=== PATIENT | male | born 1960 | race Caucasian/White ===

== ENCOUNTER 2022-06-23 06:51 | Emergency (ER) | payer BC, SELFPAY ==
--- NOTE | ~2022-06-23 | CT_ITS ---
EXAMINATION: CT ABDOMEN AND PELVIS WITH CONTRAST CLINICAL INFORMATION: Right lower quadrant pain COMPARISON: None TECHNIQUE: Multidetector volumetric images were obtained from the superior aspect of the liver through the pubic symphysis following administration 85 mL of Omnipaque 350 intravenous contrast. Sagittal and coronal reformatted images were obtained on the technologist's workstation. Oral contrast: Yes This CT examination was performed using dose optimization techniques as appropriate, variously including the following: *Automated exposure control *Adjustment of mA and/or kV according to patient size (this includes techniques or standardized protocols for targeted exams where dose is matched to indication/reason for exam; i.e. extremities or head) *Use of iterative reconstruction technique DLP: 950 mGy-cm FINDINGS: LUNG BASES: The visualized lung bases are unremarkable. LIVER, GALLBLADDER, AND BILIARY TREE: The liver is normal in size, shape, and attenuation. No focal hepatic lesion or biliary ductal dilatation is present. The gallbladder is unremarkable with no evidence of radiopaque gallstones, gallbladder wall thickening, or obvious pericholecystic inflammatory changes. PANCREAS: Unremarkable. SPLEEN: Unremarkable. ADRENAL GLANDS: Unremarkable. KIDNEYS AND URETERS: There is moderate right hydronephrosis from a 7 mm right kidney stone. There is stranding of the right perinephric and periureteral fat area may represent backflow of urine secondary to obstruction. Differential would include infection. There is a 4 mm stone in the upper pole of the right kidney. There is a 1.5 cm right renal cyst. No imaging follow-up needed. BLADDER: Unremarkable. GASTROINTESTINAL TRACT: The small and large bowel are unremarkable. The appendix is unremarkable. ABDOMINAL WALL: No significant hernia is appreciated. LYMPH NODES: Normal. VASCULAR: Atherosclerotic disease. No aneurysm. PELVIC VISCERA: Unremarkable. OSSEOUS STRUCTURES: Degenerative changes of the spine. CT/CT abdomen pelvis w IV con IMPRESSION: Moderate right hydronephrosis from a 7 mm right UPJ stone. Small right upper pole renal stone. Small right renal cyst. Right perinephric and periureteral fat stranding. This may be due to obstruction/backflow of urine. Differential would include infection. Fleischner guidelines were followed.
[2022-06-23 07:31] VITALS: BP 162/65; PULSE 66; RESP 18; TEMP 36.4; O2SAT 97; BMI 40.6
--- NOTE | 2022-06-23 07:53 | ED.ABDPAIN ---
HPI - Abdominal Pain General Chief Complaint: Abdominal Pain Stated Complaint: abd pain Time Seen by Provider: 06/23/22 07:49 Source: patient Mode of arrival: ambulatory Limitations: no limitations History of Present Illness HPI narrative: This is 7 years old male presented to emergency department complaining of right lower quadrant abdominal pain he denies any fever vomiting diarrhea the pain is been ongoing for about 2 days. MD elicited complaint: abdominal pain Pertinent past history: other (DM) Onset (ago): day(s) (2) Pain Consistency: constant Location: RLQ Severity: moderate Quality: aching Radiation: RLQ Migration to: no migration Exacerbating factors: nothing Relieving factors: nothing Related Data Previous Rx's Medication Instructions Recorded oxycodone 5 mg capsule 5 mg PO Q8H PRN pain #12 caps 06/23/22 tamsulosin 0.4 mg capsule (Flomax) 0.8 mg PO BEDTIME #10 caps 06/23/22 Allergies Allergy/AdvReac Type Severity Reaction Status Date / Time No Known Allergies Allergy Verified 06/23/22 07:33 Review of Systems Constitutional: Reports no additional constitutional complaints Cardiovascular: Reports no additional cardiovascular complaints Musculoskeletal: Reports no additional musculoskeletal complaints [facility] Past Medical History [facility] Narrative: History of diabetes, history of DJD history knee replacement Social History Social History Alcohol intake: unknown Physical Exam ED Vital Signs: Vital Signs - 24 hr 06/23/22 07:31 06/23/22 11:07 Temperature 97.6 F 98.6 F Pulse Rate 66 67 Respiratory Rate 18 18 Blood Pressure 162/65 H 161/65 H Pulse Oximetry 97 96 Oxygen Delivery Method Room Air Room Air BMI result Body Mass Index 40.6 Const General: cooperative and healthy appearing Nutritional Appearance: average body habitus Orientation/consciousness: patient oriented x3 Limitations: no limitations HENMT Head: Yes normal to inspection General nose exam: Normal external nose present Face and sinus: Yes normal facial exam Mouth: Normal oral and palatal mucosa present Throat: Yes posterior oropharynx normal Neck Neck: Yes normal visual inspection, Yes full ROM and Yes no lymphadenopathy Chest Chest palpation & inspection: normal inspection of the chest Resp Effort & Inspection: normal respiratory effort Auscultation: clear to auscultation bilaterally Cardio Jugular venous distension: no JVD Rate: regular rate Rhythm: regular rhythm GI Other: Examination of the abdomen, the abdomen is soft there is no tenderness no guarding no rebound Skin General skin exam: no rashes or lesions noted and elasticity normal Lesions: no lesions Rashes: no rashes Neuro General: patient oriented x3 Cranial nerves: Yes CN's II-XII intact bilaterally Course Reevaluation(s) Reevaluation #1: Feels better, CT scan showed the right ureter a stone 7 mm, I discussed the case with the urologist compo conveyor operator Dr Javier Alan, we discussed the option per urology he can be discharged home if pain under control she will follow up as outpatient Time: 12:15 Medical Decision Making Medical Decision Making [facility] Narrative: Patient presented with right lower quadrant abdominal pain abdomen exam is very benign, however will go ahead and do CT scan of the abdomen and pelvis to rule out acute appendicitis Differential Diagnosis Differential Diagnoses: The differential diagnosis associated with the presentation includes Differential diagnosis acute appendicitis/diverticulitis /colitis Admission/Observation Consideration of admission/observation: Escalation of care including admission/observation considered Lab Data [facility] Lab Attestation statement: I reviewed the patient's lab results. 06/23/22 08:03 06/23/22 08:41 Labs: Lab Results 06/23/22 06/23/22 06/23/22 Range/Units 08:03 08:41 11:35 WBC 9.7 (4.8-10.8) X10*3/uL RBC 4.72 (4.60-5.80) X10*6/uL Hgb 13.1 L (14.0-18.0) g/dl Hct 39.5 L (42.0-52.0) % MCV 83.7 (80.0-98.0) fL MCH 27.8 (27.0-33.0) pg MCHC 33.2 (31.0-36.0) g/dl RDW 14.6 (11.0-16.0) % Plt Count 276 (160-400) X10*3/uL MPV 9.6 (9.4-12.4) fL Immature Gran % (Auto) 0.4 (0.0-0.4) % Neut % (Auto) 78.1 H (45-73) % Lymph % (Auto) 13.7 L (20-40) % [place] % (Auto) 6.6 (2-11) % Eos % (Auto) 0.8 (0-4) % Baso % (Auto) 0.4 (0-2) % Lymph # (Auto) 1.3 (1.2-4.9) X10*3/uL [place] # (Auto) 0.6 (0.1-1.2) X10*3/uL Eos # (Auto) 0.1 (0.0-0.4) X10*3/uL Baso # (Auto) 0.0 (0.0-0.2) X10*3/uL Abs Immat Gran (auto) 0.04 H (0.00-0.03) X10*3/uL Absolute Neuts (auto) 7.6 (2.0-8.3) x10*3/uL Absolute Nucleated RBC 0.000 (0.0-0.012) X10*3/uL Nucleated RBC % (auto) 0.0 (0.0-0.2) /100WBC Sodium 138 (135-145) mmol/L Potassium 3.6 (3.3-5.1) mmol/L Chloride 113 H (96-108) mmol/L Carbon Dioxide 15 L (22-29) mmol/L Anion Gap 14 (12-20) BUN 23 H (9-16) mg/dL Creatinine 1.01 (0.5-1.4) mg/dL Estim Creat Clear Calc 111.1 Estimated GFR > 60 Random Glucose 141 H (60-115) mg/dL Calcium 7.7 L (8.4-10.2) mg/dL Total Bilirubin 0.4 (0.0-1.0) mg/dL AST 16 (5-37) U/L ALT 15 (0-40) U/L Alkaline Phosphatase 38 L (39-117) U/L Total Protein 5.3 L (6.5-8.0) g/dL Albumin 3.4 L (3.5-5.0) g/dL Urine Color Yellow Urine Appearance Clear Urine pH 5.5 (5.0-9.0) Ur Specific [place] >= 1.030 H (1.005-1.025) Urine Protein Negative (Neg-Trace) mg/dL Urine Glucose (UA) Negative (Negative) mg/dL Urine Ketones Negative (Negative) mg/dL Urine Blood Small (1+) H (Negative) Urine Nitrite Negative (Negative) Ur Leukocyte Esterase Negative (Negative) Urine RBC 0-2 (0-2) /HPF Urine WBC 0-5 (0-5) /HPF Ur Squamous Epith Cells 0-2 (0-2) /HPF Urine Bacteria None Seen (None Seen) Hyaline Casts 0-2 (0-2) /LPF Independent Interpretation I performed an independent interpretation of an: CT Scan Interpretation: ?secondary to obstruction. Differential would include infection. There is a 4 mm stone in the upper pole of the right kidney. There is a 1.5 cm right renal cyst. No imaging follow-up needed. BLADDER: Unremarkable.? GASTROINTESTINAL TRACT: The small and large bowel are unremarkable. The appendix is unremarkable.? ABDOMINAL WALL: No significant hernia is appreciated.? LYMPH NODES: Normal. VASCULAR: Atherosclerotic disease. No aneurysm. PELVIC VISCERA: Unremarkable.? OSSEOUS STRUCTURES: Degenerative changes of the spine. CT/CT abdomen pelvis w IV con IMPRESSION: Moderate right hydronephrosis from a 7 mm right UPJ stone. Small right upper pole renal stone. Small right renal cyst. Right perinephric and periureteral fat stranding. This may be due to obstruction/backflow of urine. Differential would include infection. ? Fleischner guidelines were followed. Dictated By: Jacquelin Mahmood MD Signed By: <Electronically signed by? Medications Administered Discontinued Medications Generic Name Dose Route Start Last Admin Trade Name Freq PRN Reason Stop Dose Admin Hydromorphone HCl 0.5 mg 06/23/22 10:07 06/23/22 10:22 Hydromorphone Hcl 0.5 Mg/0.5 Ml Syringe IVPUSH 06/23/22 10:08 0.5 mg ONCE ONE Administration Protocol Sodium Chloride 1,000 mls @ 999 mls/hr 06/23/22 09:30 06/23/22 10:45 Ns IVCONT 06/23/22 10:30 Infused .Q1H1M SAMSON Infusion Sodium Chloride 1,000 mls @ 999 mls/hr 06/23/22 11:45 06/23/22 11:45 Ns IV 06/23/22 12:45 999 mls/hr .Q1H1M SAMSON Administration Ketorolac Tromethamine 30 mg 06/23/22 11:23 06/23/22 11:33 Ketorolac Tromethamine 30 Mg/Ml Vial IVPUSH 06/23/22 11:24 30 mg ONCE ONE Administration Discharge Plan Discharge Clinical Impression: Renal colic Patient Disposition: Home, Self-Care Instructions: Renal Colic (ED) Additional Instructions: Follow-up with the urologist return to emergency room if you have a fever/if you vomiting/if the pain is intractable Prescriptions: New tamsulosin [Flomax] 0.4 mg capsule 0.8 mg PO BEDTIME Qty: 10 0RF oxycodone 5 mg capsule 5 mg PO Q8H PRN (Reason: pain) Qty: 12 0RF Rx Instructions: Partial Fill upon patient request. Referrals: Michelle Alicea MD [Physician] - 3 days Stand Alone Forms: Work/School Release Interventions: ED Discharge Assessment Last Done: 06/23/22 12:29 Discharge Date/Time: 06/23/22 12:29
--- NOTE | 2022-06-23 08:05 | PC.NURSE ---
Patient complaint of RLQ ABD pain no tenderness or guarding with auscultation/light palpation. BS hypoactive patient denies blood in stool no recent sick contacts or travel. No respiratory distress noted denies chest pain. AOx 4 neuros intact IV access obtained labs collected and sent will CTM
[2022-06-23 08:07] LABS: MANUAL DIFF FLAG NO
[2022-06-23 08:11] LABS: Basophils Percent Auto 0.4 % (0-2); Eosinophils Absolute Auto 0.1 X10*3/uL (0.0-0.4); Eosinophils Percent Auto 0.8 % (0-4); Hematocrit 39.5 % (42.0-52.0); Hemoglobin 13.1 g/dl (14.0-18.0); Imm Gran Abs Auto 0.04 X10*3/uL (0.00-0.03); Imm Gran Pct Auto 0.4 % (0.0-0.4); Lymphocytes Absolute Auto 1.3 X10*3/uL (1.2-4.9); Lymphocytes Percent Auto 13.7 % (20-40); Mean Corpuscular HGB Conc 33.2 g/dl (31.0-36.0); Mean Corpuscular Hemoglobin 27.8 pg (27.0-33.0); Mean Corpuscular Volume 83.7 fL (80.0-98.0); Mean Platelet Volume 9.6 fL (9.4-12.4); Monocytes Absolute Auto 0.6 X10*3/uL (0.1-1.2); Monocytes Percent Auto 6.6 % (2-11); Neutrophils Absolute Auto 7.6 x10*3/uL (2.0-8.3); Neutrophils Percent Auto 78.1 % (45-73); Platelet Count 276 X10*3/uL (160-400); Red Blood Count 4.72 X10*6/uL (4.60-5.80); Red Cell Distribution Width 14.6 % (11.0-16.0); White Blood Count 9.7 X10*3/uL (4.8-10.8)
[2022-06-23 08:58] LABS: Alanine Aminotransferase 15 U/L (0-40); Albumin Level 3.4 g/dL (3.5-5.0); Alkaline Phosphatase 38 U/L (39-117); Anion Gap 14 (12-20); Aspartate Amino Transferase 16 U/L (5-37); Bilirubin Total 0.4 mg/dL (0.0-1.0); Blood Urea Nitrogen 23 mg/dL (9-16); Calcium 7.7 mg/dL (8.4-10.2); Carbon Dioxide 15 mmol/L (22-29); Chloride 113 mmol/L (96-108); Creatinine Clr Calc Pharmacy 111.1; Estimated Glomerular Filt Rate > 60; Glucose Random 141 mg/dL (60-115); Potassium 3.6 mmol/L (3.3-5.1); Sodium 138 mmol/L (135-145); Total Protein 5.3 g/dL (6.5-8.0)
--- NOTE | 2022-06-23 09:18 | PC.NURSE ---
Patient at CT
[2022-06-23] MEDS: 0.9 % Sodium Chloride 1,000 ML 999 ML IVCONT (09:27)
--- NOTE | 2022-06-23 10:05 | PC.NURSE ---
Notified MD increased level of pain awaiting orders will CTM
[2022-06-23] MEDS: HYDROmorphone HCl 0.5 MG/0.5 ML SYRINGE IVPUSH (10:22)
[2022-06-23 11:07] VITALS: BP 161/65; PULSE 67; RESP 18; TEMP 37; O2SAT 96
[2022-06-23] MEDS: Ketorolac Tromethamine 30 MG/ML VIAL IVPUSH (11:33)
[2022-06-23] MEDS: 0.9 % Sodium Chloride 1,000 ML 999 ML IV (11:45)
[2022-06-23 11:47] LABS: Appearance Urine Clear; Color Urine Yellow; Glucose Urine UA Negative (Negative); Leukocyte Esterase Urine Negative (Negative); Nitrite Urine Negative (Negative); PH 5.5 (5.0-9.0); Specific Gravity - Urine >= 1.030 (1.005-1.025); UMIC TRIGGER UACC YES; Urine Blood Small (1+) (Negative); Urine Ketones Negative (Negative); Urine Protein Negative (Neg-Trace)
[2022-06-23 12:00] LABS: Bacteria Urine None Seen (None Seen); Hyaline Casts Urine 0-2 /LPF (0-2); RBC Urine 0-2 /HPF (0-2); Squamous Epithelial Cell Urine 0-2 /HPF (0-2); WBC Urine 0-5 /HPF (0-5)
== END 2022-06-23 12:29 | disposition home or self-care (01) ==
PROVIDERS: Emergency Provider Emergency Medicine; PCP Family Medicine
DX: N13.2 Hydronephrosis with renal and ureteral calculous obstruction (principal); E11.9 Type 2 diabetes mellitus without complications
CPT/HCPCS: 36415; 74177; 80053; 81001; 85025; 96361; 96374; 96375; 99284; J1170; J1885

== ENCOUNTER 2022-06-28 10:47 | Outpatient (REF) | payer BC, SELFPAY ==
--- NOTE | ~2022-06-28 | XR_ITS ---
EXAMINATION: XR ABDOMEN KUB CLINICAL INDICATION: Renal colic COMPARISON: CT scan of June 23, 2022 TECHNIQUE: AP view of the abdomen. FINDINGS: No dilated loops of large or small bowel are evident. Psoas margins are intact. Multilevel degenerative disc disease is present with prominent spurring. There appears be a bone island overlying the right iliac crest. There is a 1 cm faintly seen density lying between the the L3 and L4 right transverse processes. There is also a faintly seen 12 mm density overlying the region of the upper pole of the right kidney. XR/XR KUB IMPRESSION: Right Ureteral calculus seen at the level between the third and fourth transverse processes. Probable upper pole right renal calculus identified.
== END 2022-06-28 10:48 | disposition home or self-care (01) ==
LOC: HO.XRAY 10:47
PROVIDERS: PCP Family Medicine; Visit Provider Urology
DX: N20.0 Calculus of kidney (principal); N23 Unspecified renal colic; N13.30 Unspecified hydronephrosis; N13.1 Hydronephrosis with ureteral stricture, not elsewhere classified
CPT/HCPCS: 74018

== ENCOUNTER → 2022-06-30 11:50 | Outpatient (BNVA) | payer BC, SELFPAY | PROVIDERS: PCP Family Medicine; Visit Provider Urology | DX: Z13.89 Encounter for screening for other disorder (principal) ==

== ENCOUNTER 2022-07-05 09:32 | Day surgery (SDC) | payer BC, SELFPAY ==
--- NOTE | ~2022-07-05 | XR_ITS ---
EXAMINATION: XR ABDOMEN KUB CLINICAL INDICATION: Pre-ESWL. COMPARISON: KUB dated 06/28/2022; CTA abdomen and pelvis dated 06/23/2022. TECHNIQUE: 4 AP views of the abdomen and pelvis are submitted. FINDINGS: The bowel gas pattern is normal, with no evidence of ileus or obstruction. A 1.0 cm right ureteric calculus is redemonstrated at the level of the L4 right transverse process. This is faintly visualized. No further urinary calculus is appreciated. There are multi-level degenerative changes of the thoracolumbar spine. XR/XR KUB IMPRESSION: A 1.0 cm right ureteric calculus is faintly redemonstrated, situated adjacent to the right L4 transverse process.
[2022-07-05 10:46] VITALS: BMI 40.6
[2022-07-05 11:00] VITALS: BP 158/69; PULSE 79; RESP 16; TEMP 35.9; O2SAT 95
[2022-07-05 11:11] LABS: Glucose, Whole Blood 108 mg/dL (60-115)
[2022-07-05] MEDS: Lactated Ringers 1,000 ML 999 ML IV (11:13)
--- NOTE | 2022-07-05 12:45 | HO.ANESPROP2 ---
[facility] Active Problems Active Problems: All Active Problems (Updated 07/05/22 @ 10:44 by Wilma Hart RN) Kidney stone (Acute) Hydronephrosis (Acute) Hydronephrosis due to obstruction of ureter (Acute) Past Medical History Medical History (Updated 07/05/22 @ 10:44 by Wilma Hart RN) Diabetes Left testicular cancer Sleep apnea Family History Family history of problems with anesthesia: No Surgical History Surgical History (Updated 07/05/22 @ 10:43 by Wilma Hart RN) History of back surgery History of bilateral knee replacement History of Problems with Anesthesia: No Social History Social History Alcohol intake: unknown Patient Tobacco Use Status: Never used Tobacco Use of substances other than those prescribed or required for medical reasons: Yes Are you DNR?: No Advance Directives: No Advance Directives Information Provided: Yes Recently lost weight without trying: No Nutrition Risks: No Nutritional Risk Meds Allergies Allergy/AdvReac Type Severity Reaction Status Date / Time No Known Allergies Allergy Verified 06/30/22 11:51 Active Medications: Current Medications Lactated Ringer's (Lr) 1,000 mls @ 999 mls/hr IV .Q1H1M SAMSON Stop: 07/05/22 13:00 Last Admin: 07/05/22 11:13 Dose: 999 mls/hr Home Medications Medication Instructions Recorded Confirmed Last Taken Type exenatide microspheres 2 mg/0.85 mg subcut 06/28/22 Unknown History mL subcutaneous auto-injector (Bynandiniresagar Alcazar) fenofibrate 160 mg tablet 160 mg PO DAILY 06/28/22 Unknown History fluticasone propionate 50 1 spray intranasal DAILY 06/28/22 Unknown History mcg/actuation nasal spray,suspension insulin degludec 200 unit/mL (3 unit subcut 06/28/22 Unknown History mL) subcutaneous pen (Tresiba FlexTouch U-200 insulin) insulin syringe-needle U-100 1 mL #10 ea 06/28/22 Unknown History 31 gauge x 5/16 (BD Insulin Syringe Ultra-Fine) metformin 1,000 mg tablet 1,000 mg PO BID 06/28/22 Unknown History olmesartan 20 mg tablet 20 mg PO DAILY 06/28/22 Unknown History pen needle, diabetic 31 gauge x #50 ea 06/28/22 Unknown History 07/20 (BD Ultra-Fine Mini Pen Needle) pioglitazone 30 mg tablet 30 mg PO DAILY 06/28/22 Unknown History pravastatin 40 mg tablet mg PO 06/28/22 Unknown History Exam Exam Date and Time: July 05, 2022 1245 Height,Weight and Vital Signs: Height 6 ft Weight 136.078 kg Last Vital Signs Temp 96.7 F L 07/05/22 11:00 Pulse 79 07/05/22 11:00 Resp 16 07/05/22 11:00 BP 158/69 H 07/05/22 11:00 Pulse Ox 95 07/05/22 11:00 O2 Del Method 07/05/22 11:00 Pertinent Lab Results Pertinent Lab Results: Laboratory Tests 07/05/22 11:06 POC Glucose 108 Airway Mallampati Class: II TM Dist: >3cm Neck ROM: Full Loose/Missing/Broken Teeth: No Heart: ok Lungs: ok Assessment and Plan Assessment Anesthesia Assessment: Anesthesia Plan Discussed and Chart Reviewed Final Anesthetic Review Family History of Problems with Anesthesia: No History of Problems with Anesthesia: No NPO: Yes ASA Class: III Final Preanesthetic Review: No Changes in Pt Med Stat, Meds/Allgs Chart Reviewed, Consent Obtained/Reviewed and Anes Risks/Benef Reviewed Patient Risk: High Procedure Risk: Low Anesthetic Plan Anesthetic Plan: GA and Agree w/ Assess. and Plan Disposition: Standard PACU
[2022-07-05 13:46] VITALS: BP 107/52; PULSE 71; RESP 15; TEMP 36.3; O2SAT 96
--- NOTE | 2022-07-05 13:47 | P.OP_ITS ---
Operative Note Operative Note Date of Service: 07/05/22 Narrative: PreOperative Diagnosis:? ? right Renal stone Post Operative Diagnosis:?right? Renal stone Procedure:?right? ESWL Surgeon:?Dr Michelle Alicea Anesthesia:? general Indications for procedure: The patient understands ESWL may be a staged procedure and subsequent intervention may be required based on imaging after ESWL.? They also understand? there is a risk of bleeding to the kidney, infection, damage to adjacent organs, and stone migration following the procedure. - Imaging 9 mm stone Right kidney lower pole Procedure: After informed consent was verified the patient was brought to the operating room and placed in a supine position.? Anesthesia was performed per protocol. Safety pause time-out was performed. Imaging was displayed in the room and laterality confirmed. ESWL was performed.?The stone was visualized on both fluoroscopy and ultra sound.? Shockwave lithotripsy was performed, the first 300 shocks at 60 hertz.? A pause for 3 minutes.? A total of 2500 shocks to a maximum of power of 20 with a maximum rate of 120 hertz.? Good fragmentation of the stone was appreciated. The patient tolerated the procedure well and was transferred to the recovery area upon completion. Complications: None
[2022-07-05 13:51] VITALS: BP 109/57; PULSE 69; RESP 16; O2SAT 97
[2022-07-05 13:56] VITALS: BP 124/58; PULSE 66; RESP 14; O2SAT 99
[2022-07-05] MEDS: Acetaminophen 1,000 MG/100 ML PIGGYBACK 400 MG IV (14:00)
[2022-07-05 14:01] VITALS: BP 128/63; PULSE 68; RESP 16; O2SAT 99
[2022-07-05 14:16] VITALS: BP 125/61; PULSE 69; RESP 18; TEMP 36.6; O2SAT 98
== END 2022-07-05 15:54 | disposition home or self-care (01) ==
PROVIDERS: PCP Family Medicine; Visit Provider Urology
PROC: (CPT 50590; principal; 2022-07-05 12:00)
DX: N20.0 Calculus of kidney (principal); Z85.47 Personal history of malignant neoplasm of testis; E11.9 Type 2 diabetes mellitus without complications; Z79.4 Long term (current) use of insulin; G47.30 Sleep apnea, unspecified; Z99.89 Dependence on other enabling machines and devices
CPT/HCPCS: 50590; 74018; 82947; J0131; J0690; J1940; J2370; J2405; J3010

== ENCOUNTER 2022-07-21 11:05 | Outpatient (REF) | payer BC, SELFPAY ==
--- NOTE | ~2022-07-21 | XR_ITS ---
EXAMINATION: XR ABDOMEN KUB CLINICAL INDICATION: Renal calculus COMPARISON: None available. TECHNIQUE: AP view of the abdomen. FINDINGS: The bowel gas pattern is normal with no evidence of ileus or obstruction. No unusual soft tissue calcifications are noted. The bones are unremarkable. XR/XR KUB IMPRESSION: Unremarkable examination.
== END 2022-07-21 11:06 | disposition home or self-care (01) ==
LOC: HO.XRAY 11:05
PROVIDERS: PCP Family Medicine; Visit Provider Urology
DX: N20.0 Calculus of kidney (principal)
CPT/HCPCS: 74018

== ENCOUNTER → 2022-07-24 11:15 | Outpatient (BNVA) | payer BC, SELFPAY | PROVIDERS: PCP Family Medicine; Visit Provider Urology | DX: N20.0 Calculus of kidney (principal); N13.30 Unspecified hydronephrosis; N13.1 Hydronephrosis with ureteral stricture, not elsewhere classified; R11.0 Nausea | CPT/HCPCS: 51798 ==

== ENCOUNTER 2022-09-11 07:39 | Outpatient (REF) | payer BC, SELFPAY ==
--- NOTE | ~2022-09-11 | CT_ITS ---
EXAMINATION: CT abdomen pelvis wo IV con CLINICAL INFORMATION: Kidney stone COMPARISON: June 2022 TECHNIQUE: Multidetector volumetric imaging was performed from the superior aspect of the liver through the pubic symphysis , noncontrasted study. Sagittal and coronal reformatted images were obtained on the technologist's workstation. This CT examination was performed using dose optimization techniques as appropriate, variously including the following: *Automated exposure control *Adjustment of mA and/or kV according to patient size (this includes techniques or standardized protocols for targeted exams where dose is matched to indication/reason for exam; i.e. extremities or head) *Use of iterative reconstruction technique DLP: 837 mGy-cm FINDINGS: LOWER THORAX: Included lung bases are clear. HEPATOBILIARY: No focal hepatic lesions. No biliary ductal dilatation. GALLBLADDER: Gallbladder unremarkable. SPLEEN: Spleen is normal in size. PANCREAS: No focal mass or ductal dilatation. STOMACH AND GASTROINTESTINAL TRACT: Stomach is grossly unremarkable. There is no bowel distention or thickening. No CT evidence of appendicitis. There are few sigmoid diverticula. ADRENALS: No adrenal nodules. KIDNEYS/URETERS: Redemonstration of severe right renal hydronephrosis and hydroureter due to 1 cm stone lodged in the distal right ureter. There is perinephric and periureteric fat stranding which could be sequela of high degree obstruction, cannot rule out superimposed infection. There are additional nonobstructing stones in the right kidney lower calyx 7 mm. There are no stones on the left side. URINARY BLADDER: Partially decompressed. PELVIC VISCERA: Unremarkable PERITONEUM: No free air or fluid. LYMPH NODES: No lymphadenopathy. VASCULAR:There are aortic vascular calcifications. No aneurysm. BONES, ABDOMINAL WALL AND SOFT TISSUES: Spondylosis of the lumbar spine. Age-appropriate changes of the spine and skeletal system, no destructive osteolytic or osteosclerotic bone lesion found CT/CT abdomen pelvis wo IV con IMPRESSION: * Redemonstration of severe right renal hydronephrosis and hydroureter due to a 1 cm stone lodged in the distal right ureter. There is perinephric and periureteric fat stranding which could be sequela of high degree obstruction, urine backflow, cannot rule out superimposed infection. * Additional nonobstructing stones in the right kidney lower calyx. * Other noncritical findings as above..
== END 2022-09-11 07:40 | disposition home or self-care (01) ==
LOC: HO.CT 07:39
PROVIDERS: PCP Family Medicine; Visit Provider Urology
DX: N20.0 Calculus of kidney (principal); N13.30 Unspecified hydronephrosis; N13.1 Hydronephrosis with ureteral stricture, not elsewhere classified
CPT/HCPCS: 74176

== ENCOUNTER → 2022-09-18 10:48 | Outpatient (BNVA) | payer BC, SELFPAY | PROVIDERS: PCP Family Medicine; Visit Provider Urology ==

== ENCOUNTER 2022-09-19 08:34 | Day surgery (SDC) | payer BC, SELFPAY ==
--- NOTE | 2022-09-18 10:15 | HO.ANESPROP2 ---
Documented by User: Paty Rice NP 09/18/22 10:19 HPI - Anesthesia Eval Consult details Narrative: 61yo M for Cystoscopy, Ureteroroscopy, Retro, Laser,with poss stent, s/p ESWL 07/2022 with GA-LMA 5 PMFSH Active Problems Active Problems: All Active Problems (Updated 07/24/22 @ 13:03 by Michelle Alicea MD) Nausea (Acute) Encounter for screening (Acute) Kidney stone (Acute) Hydronephrosis (Acute) Hydronephrosis due to obstruction of ureter (Acute) Past Medical History Medical History Arthritis of left knee BPH (benign prostatic hyperplasia) Carcinoma of descended right testis Diabetes Ganglion cyst of dorsum of left wrist Hemorrhoids, external HTN (hypertension) Hyperchloremia Insomnia Insulin long-term use Left testicular cancer Malignant melanoma Morbid obesity Neuropathy, diabetic GEORGES (obstructive sleep apnea) Seborrheic keratoses Sleep apnea Family History Family history of problems with anesthesia: No Surgical History Surgical History History of back surgery History of bilateral knee replacement History of Problems with Anesthesia: No Social History Social History Alcohol intake: unknown Patient Tobacco Use Status: Never used Tobacco Use of substances other than those prescribed or required for medical reasons: Yes Are you DNR?: No Advance Directives: No Advance Directives Information Provided: Yes Recently lost weight without trying: Yes How much weight loss: 2-13 pounds Nutrition Risks: No Nutritional Risk Meds Allergies Allergy/AdvReac Type Severity Reaction Status Date / Time No Known Allergies Allergy Verified 09/18/22 10:49 Home Medications Medication Instructions Recorded Confirmed Last Taken Type fenofibrate 160 mg tablet 160 mg PO DAILY 06/28/22 09/19/22 Unknown History fluticasone propionate 50 1 spray intranasal DAILY 06/28/22 09/19/22 Unknown History mcg/actuation nasal spray,suspension insulin syringe-needle U-100 1 mL #10 ea 06/28/22 Unknown History 31 gauge x 5/16 (BD Insulin Syringe Ultra-Fine) metformin 1,000 mg tablet 1,000 mg PO BID 06/28/22 09/19/22 Unknown History pioglitazone 30 mg tablet 30 mg PO DAILY 06/28/22 09/19/22 Unknown History aspirin 81 mg tablet,delayed 81 mg PO DAILY 09/18/22 09/19/22 Unknown History release (Adult Aspirin Regimen) insulin degludec 200 unit/mL (3 100 unit subcut BEDTIME 09/18/22 09/19/22 Unknown History mL) subcutaneous pen (Tresiba FlexTouch U-200 insulin) pen needle, diabetic 31 gauge x #50 ea 09/18/22 Unknown History 07/20 (BD Ultra-Fine Mini Pen Needle) pravastatin 40 mg tablet 40 mg PO DAILY 09/18/22 09/19/22 Unknown History Exam Exam Date and Time: September 18, 2022 1015 Pertinent Lab Results Pertinent Lab Results: Laboratory Tests 06/23/22 06/23/22 08:03 08:41 WBC 9.7 Hgb 13.1 L Hct 39.5 L Plt Count 276 Sodium 138 Potassium 3.6 Chloride 113 H Carbon Dioxide 15 L BUN 23 H Creatinine 1.01 Assessment and Plan Assessment Anesthesia Assessment: Chart Reviewed Final Anesthetic Review Family History of Problems with Anesthesia: No History of Problems with Anesthesia: No Documented by User: Mary Downey MD 09/19/22 13:20 [facility] Active Problems Active Problems: All Active Problems (Updated 07/24/22 @ 13:03 by Michelle Alicea MD) Nausea (Acute) Encounter for screening (Acute) Kidney stone (Acute) Hydronephrosis (Acute) Hydronephrosis due to obstruction of ureter (Acute) GEORGES. Uses CPAP Past Medical History Medical History Arthritis of left knee BPH (benign prostatic hyperplasia) Carcinoma of descended right testis Diabetes Ganglion cyst of dorsum of left wrist Hemorrhoids, external HTN (hypertension) Hyperchloremia Insomnia Insulin long-term use Left testicular cancer Malignant melanoma Morbid obesity Neuropathy, diabetic GEORGES (obstructive sleep apnea) Seborrheic keratoses Sleep apnea Surgical History Surgical History History of back surgery History of bilateral knee replacement Social History Social History Alcohol intake: unknown Patient Tobacco Use Status: Never used Tobacco Use of substances other than those prescribed or required for medical reasons: Yes Are you DNR?: No Advance Directives: No Advance Directives Information Provided: Yes Recently lost weight without trying: Yes How much weight loss: 2-13 pounds Nutrition Risks: No Nutritional Risk Meds Allergies Allergy/AdvReac Type Severity Reaction Status Date / Time No Known Allergies Allergy Verified 09/18/22 10:49 Home Medications Medication Instructions Recorded Confirmed Last Taken Type fenofibrate 160 mg tablet 160 mg PO DAILY 06/28/22 09/19/22 Unknown History fluticasone propionate 50 1 spray intranasal DAILY 06/28/22 09/19/22 Unknown History mcg/actuation nasal spray,suspension insulin syringe-needle U-100 1 mL #10 ea 06/28/22 Unknown History 31 gauge x 5/16 (BD Insulin Syringe Ultra-Fine) metformin 1,000 mg tablet 1,000 mg PO BID 06/28/22 09/19/22 Unknown History pioglitazone 30 mg tablet 30 mg PO DAILY 06/28/22 09/19/22 Unknown History aspirin 81 mg tablet,delayed 81 mg PO DAILY 09/18/22 09/19/22 Unknown History release (Adult Aspirin Regimen) insulin degludec 200 unit/mL (3 100 unit subcut BEDTIME 09/18/22 09/19/22 Unknown History mL) subcutaneous pen (Tresiba FlexTouch U-200 insulin) pen needle, diabetic 31 gauge x #50 ea 09/18/22 Unknown History 3/16 (BD Ultra-Fine Mini Pen Needle) pravastatin 40 mg tablet 40 mg PO DAILY 09/18/22 09/19/22 Unknown History Exam Height,Weight and Vital Signs: Height 6 ft Weight 131.542 kg Vital Signs Temp Pulse Resp BP Pulse Ox O2 Del Method 09/19/22 09:40 97.5 F 60 16 143/57 H 96 Room Air Pertinent Lab Results Pertinent Lab Results: Laboratory Tests 06/23/22 06/23/22 08:03 08:41 WBC 9.7 Hgb 13.1 L Hct 39.5 L Plt Count 276 Sodium 138 Potassium 3.6 Chloride 113 H Carbon Dioxide 15 L BUN 23 H Creatinine 1.01 Lab Results 09/19/22 Range/Units 09:46 POC Glucose 142 H (60-115) mg/dL Airway Mallampati Class: III TM Dist: >3cm Neck ROM: Full Loose/Missing/Broken Teeth: Yes (Missing teeth top sides, bottom sides) Heart: RRR Lungs: CTAB Assessment and Plan Assessment Anesthesia Assessment: Anesthesia Plan Discussed Final Anesthetic Review NPO: Yes ASA Class: III Final Preanesthetic Review: No Changes in Pt Med Stat, Meds/Allgs Chart Reviewed, Consent Obtained/Reviewed and Anes Risks/Benef Reviewed Patient Risk: Intermediate Procedure Risk: Low Assessment/Block/Sedation in SS: Assess/Block/Sedation-SS Anesthetic Plan Anesthetic Plan: GA Disposition: Standard PACU
[2022-09-19] VITALS (9 sets, daily range): BP systolic 121–149; BP diastolic 52–73; PULSE 60–69; RESP 16; TEMP 36.3–37.4; O2SAT 96–98; BMI 39.3
--- NOTE | ~2022-09-19 | FL_ITS ---
EXAMINATION: XR FLUOROSCOPY WITH IMAGES CLINICAL INFORMATION: Right ureteral calculus COMPARISON: CT of 09/11/2022 TECHNIQUE: Fluoroscopy Supervised By: Dr. Alicea Fluoroscopy Time: 29.4 seconds Cumulative Dose: 20.08 mGy-cm Images: 4. FINDINGS: Images demonstrate a right retrograde cystoureterogram demonstrating an obstructing conglomerate of calculi within the distal third of the right ureter. Proximal to this there is hydroureter and hydronephrosis. FL/FL guidance in OR IMPRESSION: Intraoperative fluoroscopy for urologic procedure.
[2022-09-19 09:49] LABS: Glucose, Whole Blood 142 mg/dL (60-115)
[2022-09-19] MEDS: Lactated Ringers 1,000 ML 100 ML IVCONT (09:53)
--- NOTE | 2022-09-19 12:44 | MHC.SHP ---
Pre-Procedural Eval Section A Date of Service: 09/19/22 The patient is an INPATIENT: No The History & Physical has been completed within 30 days and I have reviewed it.: Yes Section B Chief Complaint: Calculus of kidney Allergies: Allergies Allergy/AdvReac Type Severity Reaction Status Date / Time No Known Allergies Allergy Verified 09/18/22 10:49 Plan Diagnosis/Plan: Unchanged I have reviewed the history and physical and performed a pertinent physical examination on my patient. No changes have occurred unless specified. Plan for Cystoscopy, Right ureteroscopy, possible laser lithotripsy, possible ureteral stent. Risks discussed included but not limited to, possible need to repeat procedure if stone is not completely fragmented, Irritative voiding symptoms, bladder spasms, urgency, blood in urine. Time Spent With Patient Time: Total time managing care of this patient today ____ minutes.
--- NOTE | 2022-09-19 14:36 | P.OP_ITS ---
Operative Note Operative Note Date of Service: 09/19/22 Narrative: PreOperative Diagnosis:?? Right ureteral stone, right hydronephrosis Post Operative Diagnosis:?? Right ureteral stone, right hydronephrosis Procedure: - cystoscopy, Right retrograde, right ureteroscopy laser lithotripsy stent insertion, 6 [place] by multi-length cm Surgeon:?Dr Michelle Alicea Anesthesia:? General Indications for procedure: Right distal ureteral stone, h/o right ESWL 07/05/22. Procedure: After informed consent was verified the patient was brought to the operating placed on the OR table in supine position.? General Anesthesia was administered per protocol.? The patient was placed in lithotomy position, prepped and draped in the usual sterile fashion.? Safety pause time-out and side of surgery confirmed.? Antibiotics confirmed. 2% lidocaine jelly 10 mL was passed transurethrally. A 22 [place] cystoscope was inserted transurethrally, the bulbous urethra was within normal limits. The prostatic urethra was nonobstructive. The bladder was visualized.? Both ureteric orifices were in normal position. An open-ended ureteral catheter was passed into the right ureteral orifice and a retrograde examination was performed. There was a filling defect in the distal right ureter and dilatation of the proximal ureter and renal pelvis and calices. A guidewire was passed through the ureteral catheter into the kidney. The balloon dilator size 12 fr by 4 cm was passed over the guide -wire the balloon was inflated to 8 mmHg and the intramural ureter was dilated for 45 seconds. The balloon was deflated and removed. After removing the balloon dilator a 2nd guidewire was then passed into the kidney to use as a safety. The cystoscope was removed, leaving both guidewires in place. One guidewire was used as the safety and was attached to the draping. The semi rigid ureteroscope was passed over one of the guidewires to the level of the stone in the ureter. A large stone with multiple smaller stone fragments were seen layering proximal to the larger stone (likely secondary to prior ESWL therapy). One guidewire was then removed. Laser lithotripsy of the stone was done using the 365 fiber with a settings 0.8 joules by [address] with 0.3 by 25 hertz. There was good fragmentation of the stone. The 0 degree basket was passed through the ureteroscope, fragments were removed to send for analysis. There were remaining small fragments in the ureter that were small enough to pass along the stent. The ureteroscope was removed. The cystoscope was passed over the safety guidewire. A? 6 [place] by multi-length cm stent was placed into the right ureter and renal pelvis under a combination of fluoroscopy and direct visualization. The bladder was emptied.? The rigid cystoscope was removed. ? The patient tolerated the procedure well and was brought to the recovery room in stable condition. Complications: None Drains: Ureteral stent as dictated above
[2022-09-19] MEDS: Phenazopyridine HCL 100 MG TABLET 200 MG PO (15:35)
[2022-09-26 18:34] LABS: Stone Source RIGHT URETERAL STONE
== END 2022-09-19 16:44 | disposition home or self-care (01) ==
PROVIDERS: PCP Family Medicine; Visit Provider Urology
PROC: (CPT 52356; principal; 2022-09-19 09:50)
DX: N13.2 Hydronephrosis with renal and ureteral calculous obstruction (principal); E11.9 Type 2 diabetes mellitus without complications; I10 Essential (primary) hypertension; Z79.4 Long term (current) use of insulin
CPT/HCPCS: 52356; 82365; 82947; 88300; C1726; C1769; C2617; J0690; J1100; J2250; J2405; J3010; Q9967

== ENCOUNTER → 2022-10-09 15:23 | Outpatient (BNVA) | payer BC, SELFPAY | PROVIDERS: PCP Family Medicine; Visit Provider Urology | DX: N20.0 Calculus of kidney (principal); N13.1 Hydronephrosis with ureteral stricture, not elsewhere classified | CPT/HCPCS: 52000; 52310 ==

== ENCOUNTER 2022-11-10 11:35 | Outpatient (REF) | payer BC, SELFPAY ==
[2022-11-10 12:57] LABS: Anion Gap 13 (12-20); Blood Urea Nitrogen 36 mg/dL (9-16); Calcium 9.8 mg/dL (8.4-10.2); Carbon Dioxide 22 mmol/L (22-29); Chloride 109 mmol/L (96-108); Estimated Glomerular Filt Rate 47; Glucose Random 120 mg/dL (60-115); Potassium 5.3 mmol/L (3.3-5.1); Sodium 139 mmol/L (135-145)
== END 2022-11-10 11:36 | disposition home or self-care (01) ==
LOC: HO.LAB 11:35
PROVIDERS: PCP Family Medicine; Visit Provider Urology
DX: N20.0 Calculus of kidney (principal); N13.1 Hydronephrosis with ureteral stricture, not elsewhere classified
CPT/HCPCS: 36415; 80048

== ENCOUNTER 2023-01-09 11:29 | Outpatient (REF) | payer BC, SELFPAY ==
--- NOTE | ~2023-01-09 | US_ITS ---
EXAMINATION: US RETROPERITONEAL LIMITED (RENAL ONLY) CLINICAL INFORMATION: Calculus of kidney. COMPARISON: CT abdomen and pelvis 09/11/2022. X-ray KUB 07/21/2022 and 07/05/2022. TECHNIQUE: Real-time imaging of the kidneys. FINDINGS: RIGHT KIDNEY: 14.6 x 5.4 x 5.4 cm (SAG x AP x TRV). The kidney is normal in size, contour, and echogenicity. Renal cortical thickness is normal. No hydronephrosis. Midpole cyst measures 2.1 x 2.1 x 2.2 cm. Midpole nonobstructing calculus measures 5 mm. Upper pole nonobstructing calculus measures 6 mm. LEFT KIDNEY: 15.2 x 7.0 x 5.9 cm (SAG x AP x TRV). The kidney is normal in size, contour, and echogenicity. Renal cortical thickness is normal. No calculi or focal parenchymal lesions. No hydronephrosis. US/US renal BI IMPRESSION: Nonobstructing right renal calculi. No hydronephrosis.
== END 2023-01-09 11:30 | disposition home or self-care (01) ==
LOC: HO.US 11:29
PROVIDERS: PCP Family Medicine; Visit Provider Urology
DX: N20.0 Calculus of kidney (principal)
CPT/HCPCS: 76775

== ENCOUNTER 2023-02-01 13:14 | Outpatient (AMB) | payer BC, SELFPAY ==
--- NOTE | 2023-02-01 13:17 | A.OFFVIS_ITS ---
Intake Intake Visit Reasons: 4m/US/labs/Litholink Intake Note: Patient presents today for a follow-up on US, Litholink & Labs: US Completed on 01/09/2023, No Litholink Results Yet: Meds- Pyridium & Tamsulosin Allergies to Antibiotic- NKA Blood Thinner- Aspirin Medical Staff Services Manager Required: No Accompanied by: Self / Same As Patient Allergies No Known Allergies Allergy (Verified 02/01/23 13:19) HPI HPI Comments History of Present Illness Details Eddie is a 62-year-old male who presents today to the office for a follow-up. 02/01/2023? Eddie is a 61-year-old male who is followed for kidney stones. He is followed today for litholink results/US results. ?He has not completed the 24 hr urine. Previous surgical interventions, status post right ESWL done on 07/05/22 and prior right? ureteroscopy laser lithotripsy stent insertion on 09/19/22.?. He states that he is doing well but mentions having lower back pain. PMH - Diabetes on metformin. I reviewed the renal US results from 01/09/2023 revealed nonobstructing right renal calculi. No hydronephrosis. Review of charts: CTAP--09/11/22-- findings show significant hydronephrosis of right kidney secondary to the stone present in the distal ureter.? right ESWL done on 07/05/22. right? ureteroscopy laser lithotripsy stent insertion on 09/19/22.? Stone analysis results reviewed-- 80% uric acid, 20% calcium oxalate.? ? 02/01/2023: Plan:? To refill Urocit-K 15 mEq BID. Check the electrolytes to monitor the potassium. Repeat 24-hour urine collection test. Follow-up in 10 weeks. [facility] Medical History Seborrheic keratoses GEORGES (obstructive sleep apnea) Morbid obesity Malignant melanoma Insulin long-term use Insomnia HTN (hypertension) Hyperchloremia Ganglion cyst of dorsum of left wrist Hemorrhoids, external Neuropathy, diabetic Carcinoma of descended right testis BPH (benign prostatic hyperplasia) Arthritis of left knee Diabetes Left testicular cancer Sleep apnea Surgical History History of back surgery History of bilateral knee replacement Social History Alcohol intake: unknown Patient Tobacco Use Status: Never used Tobacco Review of Systems Const All systems reviewed & are unremarkable except as noted in HPI and below Reports no additional complaints Eyes Reports no additional complaints ENT Denies neck pain Card Denies leg edema Resp Denies cough GI Denies constipation Musc Reports no additional complaints and Denies neck pain Skin/Breast Denies rash and Denies unusual bruising Neuro Reports no additional complaints Psych Reports no additional complaints Endo Reports no additional complaints Serg/Lymph Reports no additional complaints Aller/Immun Reports no additional complaints Physical Exam Const General: no acute distress and well developed Orientation/consciousness: patient oriented x3 HEENT Head: Yes normocephalic and Yes atraumatic Eyes Conjunctivae: conjunctivae normal Neck Neck: Yes normal visual inspection Chest Chest palpation & inspection: normal inspection of the chest Resp Effort & Inspection: normal respiratory effort GI Inspection: Yes normal to inspection Skin General skin exam: no rashes or lesions noted Neuro General: patient oriented x3 Extrem General: No pedal edema Psych Appearance: grossly normal Affect: normal affect Results AMB Urinalysis, Automated UA Leukoctes 0 Olena/uL Last Edit by HUGO Evangelista on 02/01/23 13:24 UA Nitrite Negative Last Edit by HUGO Evangelista on 02/01/23 13:24 UA Urobilinogen 0.2 mg/dL Last Edit by HUGO Evangelista on 02/01/23 13:2 4 UA Protein 15 mg/dL Last Edit by HUGO Evangelista on 02/01/23 13:24 UA pH 5.0 Last Edit by HUGO Evangelista on 02/01/23 13:24 UA Blood 0 Terrell/uL Last Edit by HUGO Evangelista on 02/01/23 13:24 UA Specific [place] 1.025 Last Edit by Anna Marieluis BonifacioHUGO pop on 02/01/23 13: 24 UA Ketone Negative Last Edit by Anna Marieluis BonifacioHUGO pop on 02/01/23 13:24 UA Bilirubin 0 mg/dL Last Edit by HUGO Evangelista on 02/01/23 13:24 UA Glucose 500 mg/dL Last Edit by HUGO Evangelista on 02/01/23 13:24 Results Reviewed Results Reviewed: Laboratory Last Values Urine pH (Auto) 5.0 02/01/23 13:20 Specific [place] (Auto) 1.025 02/01/23 13:20 Urine Protein (Auto) 15 mg/dL 02/01/23 13:20 Glucose (UA)(Auto) 500 mg/dL 02/01/23 13:20 Urine Ketones (Auto) Negative 02/01/23 13:20 Urine Blood (Auto) 0 Terrell/uL 02/01/23 13:20 Urine Nitrite (Auto) Negative 02/01/23 13:20 Urine Bilirubin (Auto) 0 mg/dL 02/01/23 13:20 Urine Urobilinogen (Auto) 0.2 mg/dL 02/01/23 13:20 Leukocyte Esterase (Auto) 0 Olena/uL 02/01/23 13:20 Date of Service: 01/09/23 EXAMINATION:? US RETROPERITONEAL LIMITED (RENAL ONLY) CLINICAL INFORMATION: Calculus of kidney. COMPARISON:? CT abdomen and pelvis 09/11/2022. X-ray KUB 07/21/2022 and 07/05/2022. FINDINGS: RIGHT KIDNEY: 14.6 x 5.4 x 5.4 cm (SAG x AP x TRV). The kidney is normal in size, contour, and echogenicity. Renal cortical thickness is normal. No hydronephrosis. Midpole cyst measures 2.1 x 2.1 x 2.2 cm. Midpole nonobstructing calculus measures 5 mm. Upper pole nonobstructing calculus measures 6 mm. LEFT KIDNEY: 15.2 x 7.0 x 5.9 cm (SAG x AP x TRV). The kidney is normal in size, contour, and echogenicity. Renal cortical thickness is normal. No calculi or focal parenchymal lesions. No hydronephrosis. IMPRESSION:? Nonobstructing right renal calculi. No hydronephrosis. Assessment & Plan Assessment & Plan (1) Uric acid kidney stone: Code(s): N20.0 - Calculus of kidney Plan To refill Urocit-K 15 mEq BID. Check the electrolytes to monitor the potassium. Repeat 24-hour urine collection test. Follow-up in 10 weeks. Orders: Orders AMB Urinalysis Automated 02/01/23 Z13.9 - Encounter for screening, unspecified Electrolytes 2 Weeks N20.0 - Calculus of kidney Medications: Refilled potassium citrate ER (Urocit-K 15) 15 mEq PO BID 60 tabs 4RF Discontinued tamsulosin Discontinued Reason: No Longer Medically Relevant 0.8 mg (2 x 0.4 mg) PO BEDTIME 30 caps 0RF Patient Instructions: The patient had an opportunity to ask questions regarding treatment plan. All questions were answered. Imaging, Laboratory studies and physical exam results were discussed and reviewed in detail. No major barriers to understanding were identified. The patient expressed understanding and agreement with the above treatment plan.? ? ? The patient is aware they should contact our office by phone for worsening of their current condition or the appearance of new symptoms. Compliance is encouraged with any medications and followup testing that is ordered.? ? ? It is a privilege to be allowed the opportunity to participate in the urologic care of your patient. If you have any questions or concerns regarding treatment for the above conditions please do not hesitate to contact me. The office telephone contact is [phone].? ? ? This note is constructed in part using voice recognition software. While every effort has been made to ensure accuracy denture technician errors may have been included.? ? ? Yours sincerely,? ? ? Michelle Alicea MD? Coding Level of Care Code Est Pt Level 4 (92899) Diagnoses Uric acid kidney stone N20.0
== END 2023-02-01 13:44 | disposition home or self-care (01) ==
PROVIDERS: PCP Family Medicine; Visit Provider Urology
DX: N20.0 Calculus of kidney (principal)
CPT/HCPCS: 99214

== ENCOUNTER → 2023-02-01 13:14 | Outpatient (BNVA) | payer BC, SELFPAY | PROVIDERS: PCP Family Medicine; Visit Provider Urology | DX: N20.0 Calculus of kidney (principal) | CPT/HCPCS: 81003 ==

== ENCOUNTER 2023-02-26 13:10 | Outpatient (REF) | payer BC, SELFPAY ==
[2023-02-26 14:30] LABS: Anion Gap 13 (12-20); Carbon Dioxide 23 mmol/L (22-29); Chloride 106 mmol/L (96-108); Potassium 5.3 mmol/L (3.3-5.1); Sodium 137 mmol/L (135-145)
== END 2023-02-26 13:11 | disposition home or self-care (01) ==
LOC: HO.LAB 13:10
PROVIDERS: Visit Provider Urology
DX: N20.0 Calculus of kidney (principal)
CPT/HCPCS: 36415; 80051

== ENCOUNTER 2023-03-05 13:18 | Outpatient (REF) | payer BC, SELFPAY ==
[2023-03-05 14:40] LABS: Potassium 5.2 mmol/L (3.3-5.1)
== END 2023-03-05 13:19 | disposition home or self-care (01) ==
LOC: HO.LAB 13:18
PROVIDERS: PCP Family Medicine; Visit Provider Urology
DX: N20.0 Calculus of kidney (principal)
CPT/HCPCS: 36415; 84132

== ENCOUNTER 2023-07-23 14:31 | Outpatient (AMB) | payer BC, SELFPAY ==
--- NOTE | 2023-07-23 14:46 | A.OFFVIS_ITS ---
Intake Intake Visit Reasons: follow up/24hr urine/labs/med refills Intake Note: Patient presents today for a follow-up on 24H urine/labs/med refills Meds- None Allergies to Antibiotic- No Known Allergies Blood Thinner- Aspirin Patient stated he is not longer taking Pyridium, and Oxycodone Zinc Plate Cutter Required: No Accompanied by: Self / Same As Patient Allergies No Known Allergies Allergy (Verified 07/23/23 15:09) Medication List - Last Reconciled 07/23/23 by Michelle Alicea MD aspirin (Adult Aspirin Regimen) 81 mg PO DAILY fenofibrate 160 mg PO DAILY fluticasone propionate 50 mcg/actuation 1 spray intranasal DAILY insulin degludec (Tresiba FlexTouch U-200 insulin) 100 units subcut BEDTIME insulin syringe-needle U-100 (BD Insulin Syringe Ultra-Fine) As directed metformin 1,000 mg PO BID potassium citrate ER (Urocit-K 15) 15 mEq PO BID pravastatin 40 mg PO DAILY HPI HPI Comments History of Present Illness Details 07/23/23---Eddie is a 62-year-old male who presents today to the office for a follow-up. He states that he ran out of the potassium citrate and was not able to get refills from the pharmacy. He states he is doing well he denies renal colic, denies gross hematuria. He states he has not had time to re-do the 24 hour urine. Review of chart 02/01/2023? Eddie is a 61-year-old male who is followed for kidney stones. He is followed today for litholink results/US results. ?He has not completed the 24 hr urine. Previous surgical interventions, status post right ESWL done on 07/05/22 and prior right? ureteroscopy laser lithotripsy stent insertion on 09/19/22.?. He states that he is doing well but mentions having lower back pain. PMH - Diabetes on metformin. I reviewed the renal US results from 01/09/2023 revealed nonobstructing right renal calculi. No hydronephrosis. CTAP--09/11/22-- findings show significant hydronephrosis of right kidney secondary to the stone present in the distal ureter.? right ESWL done on 07/05/22. right? ureteroscopy laser lithotripsy stent insertion on 09/19/22.? Stone analysis results reviewed-- 80% uric acid, 20% calcium oxalate.? ? 07/23/2023: Plan:? To refill Urocit-K 15 mEq BID. Follow-up 3 months, renal ultrasound, 24 hour urine, electrolytes check potassium patient is on potassium citrate [facility] Medical History Seborrheic keratoses GEORGES (obstructive sleep apnea) Morbid obesity Malignant melanoma Insulin long-term use Insomnia HTN (hypertension) Hyperchloremia Ganglion cyst of dorsum of left wrist Hemorrhoids, external Neuropathy, diabetic Carcinoma of descended right testis BPH (benign prostatic hyperplasia) Arthritis of left knee Diabetes Left testicular cancer Sleep apnea Surgical History History of back surgery History of bilateral knee replacement Social History Alcohol intake: unknown Patient Tobacco Use Status: Never used Tobacco Review of Systems Const All systems reviewed & are unremarkable except as noted in HPI and below Reports no additional complaints Eyes Reports no additional complaints ENT Reports no additional complaints Card Reports no additional complaints Resp Reports no additional complaints GI Reports no additional complaints Reports as per HPI Musc Reports no additional complaints Skin/Breast Reports system reviewed and no additional complaints, except as documented Neuro Reports no additional complaints Psych Reports no additional complaints Endo Reports no additional complaints Serg/Lymph Reports no additional complaints Aller/Immun Reports no additional complaints Results AMB Urinalysis, Automated UA Leukoctes 0 Olena/uL Last Edit by Leonarda Jiang CMA on 07/23/23 15 :05 UA Nitrite Negative Last Edit by Leonarda Jiang CMA on 07/23/23 15: 05 UA Urobilinogen 0.2 mg/dL Last Edit by Leonarda Jiang CMA on 4 15:05 UA Protein 15 mg/dL [facility] on 07/23/23 15:0 5 UA pH 6.0 Last Edit [facility], [facility] on 07/23/23 15:05 UA Blood 0 Terrell/uL Last [facility], [facility] on 07/23/23 15:05 UA Specific Leigh 1.020 Last Edit by [facility], [facility] on 15:05 UA Ketone Negative Last Edit by [facility], [facility] on 07/23/23 15:0 5 UA Bilirubin 0 mg/dL Last Edit by [facility], [facility] on 07/23/23 15: 05 UA Glucose 500 mg/dL Last Edit [facility] on 07/23/23 15: 05 Results Reviewed Results Reviewed: Laboratory Last Values Urine pH (Auto) 6.0 07/23/23 15:02 Specific Leigh (Auto) 1.020 07/23/23 15:02 Urine Protein (Auto) 15 mg/dL 07/23/23 15:02 Glucose (UA)(Auto) 500 mg/dL 07/23/23 15:02 Urine Ketones (Auto) Negative 07/23/23 15:02 Urine Blood (Auto) 0 Terrell/uL 07/23/23 15:02 Urine Nitrite (Auto) Negative 07/23/23 15:02 Urine Bilirubin (Auto) 0 mg/dL 07/23/23 15:02 Urine Urobilinogen (Auto) 0.2 mg/dL 07/23/23 15:02 Leukocyte Esterase (Auto) 0 Olena/uL 07/23/23 15:02 Date of Service: 01/09/23 EXAMINATION:? US RETROPERITONEAL LIMITED (RENAL ONLY) CLINICAL INFORMATION: Calculus of kidney. COMPARISON:? CT abdomen and pelvis 09/11/2022. X-ray KUB 07/21/2022 and 07/05/2022. FINDINGS: RIGHT KIDNEY: 14.6 x 5.4 x 5.4 cm (SAG x AP x TRV). The kidney is normal in size, contour, and echogenicity. Renal cortical thickness is normal. No hydronephrosis. Midpole cyst measures 2.1 x 2.1 x 2.2 cm. Midpole nonobstructing calculus measures 5 mm. Upper pole nonobstructing calculus measures 6 mm. LEFT KIDNEY: 15.2 x 7.0 x 5.9 cm (SAG x AP x TRV). The kidney is normal in size, contour, and echogenicity. Renal cortical thickness is normal. No calculi or focal parenchymal lesions. No hydronephrosis. IMPRESSION:? Nonobstructing right renal calculi. No hydronephrosis. Assessment & Plan Assessment & Plan (1) Kidney stone: Code(s): N20.0 - Calculus of kidney Plan Follow-up 3 months, renal ultrasound, 24 hour urine, electrolytes check potassium patient is on potassium citrate Orders: Orders AMB Urinalysis Automated 07/23/23 R33.9 - Retention of urine, unspecified US renal BI 07/23/23 N20.0 - Calculus of kidney Medications: New potassium citrate ER (Urocit-K 15) 15 mEq PO BID 180 tabs 3RF Patient Instructions: The patient had an opportunity to ask questions regarding treatment plan. All questions were answered. Imaging results were discussed and reviewed in detail. No major barriers to understanding were identified. The patient expressed understanding and agreement with the above treatment plan. The patient is aware they should contact our office by phone for worsening of their current condition or the appearance of new symptoms. Compliance is encouraged with any medications and followup testing that is ordered. It is a privilege to be allowed the opportunity to participate in the urologic care of your patient. If you have any questions or concerns regarding treatment for the above conditions please do not hesitate to contact me. The office telep ashok contact is [phone]. This note is constructed in part using voice recognition software. While every effort has been made to ensure accuracy measurement specialist errors may have been included. Yours sincerely, Michelle Alicea MD Coding Level of Care Code Est Pt Level 3 (50011) Diagnoses Kidney stone N20.0
== END 2023-07-23 15:42 | disposition home or self-care (01) ==
PROVIDERS: PCP Family Medicine; Visit Provider Urology
DX: N20.0 Calculus of kidney (principal)
CPT/HCPCS: 99213

== ENCOUNTER → 2023-07-23 14:31 | Outpatient (BNVA) | payer BC, SELFPAY | PROVIDERS: PCP Family Medicine; Visit Provider Urology | DX: N20.0 Calculus of kidney (principal); R33.9 Retention of urine, unspecified | CPT/HCPCS: 81003 ==

== ENCOUNTER 2023-10-15 11:29 | Outpatient (REF) | payer BC, SELFPAY ==
--- NOTE | ~2023-10-15 | US_ITS ---
EXAMINATION: US RETROPERITONEAL LIMITED (RENAL ONLY) CLINICAL INFORMATION: Calculus of kidney. COMPARISON: Ultrasound renal 01/09/2023. CT abdomen and pelvis 09/11/2022. X-ray KUB 07/21/2022 and 07/05/2022. TECHNIQUE: Real-time imaging of the kidneys. FINDINGS: RIGHT KIDNEY: 12.7 x 5.8 x 5.9 cm (SAG x AP x TRV). The kidney is normal in size, contour, and echogenicity. Renal cortical thickness is normal. No renal calculi or hydronephrosis. Upper pole 1.9 cm benign-appearing cyst. Followup imaging is not routinely recommended for benign appearing cysts. LEFT KIDNEY: 13.6 x 7.1 x 5.8 cm (SAG x AP x TRV). The kidney is normal in size, contour, and echogenicity. Renal cortical thickness is normal. No calculi or focal parenchymal lesions. No hydronephrosis. US/US renal BI IMPRESSION: No hydronephrosis or nephrolithiasis.
== END 2023-10-15 11:30 | disposition home or self-care (01) ==
LOC: HO.HMGCX 11:29
PROVIDERS: PCP Family Medicine; Visit Provider Urology
DX: N20.0 Calculus of kidney (principal)
CPT/HCPCS: 76775

== ENCOUNTER 2023-10-22 13:45 | Outpatient (AMB) | payer BC, SELFPAY ==
--- NOTE | 2023-10-22 14:01 | A.OFFVIS_ITS ---
Intake Visit Reasons: 3m/US Intake Note: Patient presents today for a US Results: Meds- None Allergies to Antibiotic- No Known Allergies Blood Thinner- Aspirin Medical Customer Service Representative Required: No Accompanied by: Self / Same As Patient Allergies No Known Allergies Allergy (Verified 10/22/23 14:04) Medication List - Last Reconciled 10/23/23 by Michelle Alicea MD aspirin (Adult Aspirin Regimen) 81 mg PO DAILY fenofibrate 160 mg PO DAILY fluticasone propionate 50 mcg/actuation 1 spray intranasal DAILY insulin degludec (Tresiba FlexTouch U-200 insulin) 100 units subcut BEDTIME insulin syringe-needle U-100 (BD Insulin Syringe Ultra-Fine) As directed metformin 1,000 mg PO BID potassium citrate ER (Urocit-K 15) 15 mEq PO BID pravastatin 40 mg PO DAILY HPI Comments Details: 10/22/2023--christy is followed due to kidney stones. He has been prescribed Urocit-K. The patient is here to review renal ultrasound results. He did not have the 24 hour urine done. He did not have his lab work, electrolytes done. He denies renal colic symptoms or gross hematuria. Reviewed renal ultrasound films--- 10/15/23--no renal calculi noted. Discussed the importance of having lab work done. Review of chart: 07/23/23---Christy is a 62-year-old male who presents today to the office for a follow-up. He states that he ran out of the potassium citrate and was not able to get refills from the pharmacy. He states he is doing well he denies renal colic, denies gross hematuria. He states he has not had time to re-do the 24 hour urine. 02/01/2023? Christy is a 61-year-old male who is followed for kidney stones. He is followed today for litholink results/US results. ?He has not completed the 24 hr urine. Previous surgical interventions, status post right ESWL done on 07/05/22 and prior right? ureteroscopy laser lithotripsy stent insertion on 09/19/22.?. He states that he is doing well but mentions having lower back pain. PMH - Diabetes on metformin. I reviewed the renal US results from 01/09/2023 revealed nonobstructing right renal calculi. No hydronephrosis. CTAP--09/11/22-- findings show significant hydronephrosis of right kidney secondary to the stone present in the distal ureter.? right ESWL done on 07/05/22. right? ureteroscopy laser lithotripsy stent insertion on 09/19/22.? Stone analysis results reviewed-- 80% uric acid, 20% calcium oxalate.? ? [facility] Medical History Seborrheic keratoses GEORGES (obstructive sleep apnea) Morbid obesity Malignant melanoma Insulin long-term use Insomnia HTN (hypertension) Hyperchloremia Ganglion cyst of dorsum of left wrist Hemorrhoids, external Neuropathy, diabetic Carcinoma of descended right testis BPH (benign prostatic hyperplasia) Arthritis of left knee Diabetes Left testicular cancer Sleep apnea Surgical History History of back surgery History of bilateral knee replacement Social History Alcohol intake: unknown Patient Tobacco Use Status: Never used Tobacco Review of Systems Const All systems reviewed & are unremarkable except as noted in HPI and below Reports no additional complaints Eyes Reports no additional complaints ENT Reports no additional complaints Card Reports no additional complaints Resp Reports no additional complaints GI Reports no additional complaints Reports as per HPI Musc Reports no additional complaints Skin/Breast Reports system reviewed and no additional complaints, except as documented Neuro Reports no additional complaints Psych Reports no additional complaints Endo Reports no additional complaints Serg/Lymph Reports no additional complaints Aller/Immun Reports no additional complaints Results AMB Urinalysis, Automated UA Leukoctes 0 Olena/uL Last Edit by HUGO Evangelista on 10/22/23 14:20 UA Nitrite Negative Last Edit by HUGO Evangelista on 10/22/23 14:20 UA Urobilinogen 0.2 mg/dL Last Edit by Gloria Valdovinos, A on 10/22/23 14:2 0 UA Protein 0 mg/dL Last Edit by Gloria Valdovinos, A on 10/22/23 14:20 UA pH 5.0 Last Edit by Gloria Valdovinos, RMA on 10/22/23 14:20 UA Blood 0 Terrell/uL Last Edit by Gloria Valdovinos, A on 10/22/23 14:20 UA Specific [place] 1.020 Last Edit by Gloria Valdovinos, RMA on 10/22/23 14: 20 UA Ketone Positive Last Edit by Gloria Valdovinos, RMA on 10/22/23 14:20 UA Bilirubin 0 mg/dL Last Edit by Gloria Valdovinos, A on 10/22/23 14:20 UA Glucose 500 mg/dL Last Edit by Gloria Valdovinos, A on 10/22/23 14:20 2+ Gloria Valdovinos 10/22/23 14:20 Results Reviewed Results Reviewed: Laboratory Last Values Urine pH (Auto) 5.0 10/22/23 14:19 Specific [place] (Auto) 1.020 10/22/23 14:19 Urine Protein (Auto) 0 mg/dL 10/22/23 14:19 Glucose (UA)(Auto) 500 mg/dL 10/22/23 14:19 Urine Ketones (Auto) Positive 10/22/23 14:19 Urine Blood (Auto) 0 Terrell/uL 10/22/23 14:19 Urine Nitrite (Auto) Negative 10/22/23 14:19 Urine Bilirubin (Auto) 0 mg/dL 10/22/23 14:19 Urine Urobilinogen (Auto) 0.2 mg/dL 10/22/23 14:19 Leukocyte Esterase (Auto) 0 Olena/uL 10/22/23 14:19 Reviewed renal ultrasound films--- 10/15/23--no renal calculi noted Date of Service: 01/09/23 EXAMINATION:? US RETROPERITONEAL LIMITED (RENAL ONLY) CLINICAL INFORMATION: Calculus of kidney. COMPARISON:? CT abdomen and pelvis 09/11/2022. X-ray KUB 07/21/2022 and 07/05/2022. FINDINGS: RIGHT KIDNEY: 14.6 x 5.4 x 5.4 cm (SAG x AP x TRV). The kidney is normal in size, contour, and echogenicity. Renal cortical thickness is normal. No hydronephrosis. Midpole cyst measures 2.1 x 2.1 x 2.2 cm. Midpole nonobstructing calculus measures 5 mm. Upper pole nonobstructing calculus measures 6 mm. LEFT KIDNEY: 15.2 x 7.0 x 5.9 cm (SAG x AP x TRV). The kidney is normal in size, contour, and echogenicity. Renal cortical thickness is normal. No calculi or focal parenchymal lesions. No hydronephrosis. IMPRESSION:? Nonobstructing right renal calculi. No hydronephrosis. Assessment & Plan Assessment & Plan (1) Kidney stone: Code(s): N20.0 - Calculus of kidney Category: Medical Plan Follow-up 6 months, renal ultrasound, 24 hour urine, electrolytes check potassium as patient is on potassium citrate Orders: Orders AMB Urinalysis Automated 10/22/23 Z13.9 - Encounter for screening, unspecified Patient Instructions: The patient had an opportunity to ask questions regarding treatment plan. The patient expressed understanding and agreement with the above treatment plan. The patient is aware they should contact our office by phone for worsening of their current condition or the appearance of new symptoms. Compliance is encouraged with any medications and followup testing that is ordered. It is a privilege to be allowed the opportunity to participate in the urologic care of your patient. If you have any questions or concerns regarding treatment for the above conditions please do not hesitate to contact me. The office telephone contact is [phone]. This note is constructed in part using voice recognition software. While every effort has been made to ensure accuracy business investor errors may have been included. Yours sincerely, Michelle Alicea MD Coding Level of Care Code Est Pt Level 3 (38792) Diagnoses Kidney stone N20.0
== END 2023-10-22 14:32 | disposition home or self-care (01) ==
PROVIDERS: PCP Family Medicine; Visit Provider Urology
DX: N20.0 Calculus of kidney (principal)
CPT/HCPCS: 99213

== ENCOUNTER → 2023-10-22 13:45 | Outpatient (BNVA) | payer BC, SELFPAY | PROVIDERS: PCP Family Medicine; Visit Provider Urology | DX: N20.0 Calculus of kidney (principal) | CPT/HCPCS: 81003 ==

== ENCOUNTER 2023-11-05 12:33 | Outpatient (REF) | payer BC, SELFPAY ==
[2023-11-05 14:09] LABS: Anion Gap 11 (12-20); Carbon Dioxide 23 mmol/L (22-29); Chloride 109 mmol/L (96-108); Potassium 5.4 mmol/L (3.3-5.1); Sodium 138 mmol/L (135-145)
== END 2023-11-05 12:34 | disposition home or self-care (01) ==
LOC: HO.HMGCLDS 12:33
PROVIDERS: PCP Family Medicine; Visit Provider Urology
DX: N20.0 Calculus of kidney (principal); Z79.899 Other long term (current) drug therapy
CPT/HCPCS: 36415; 80051